=== PATIENT | female | born 1970 | race Caucasian/White ===

== ENCOUNTER 2024-02-12 10:52 | Emergency (ER) | payer MEDICAID ==
[~2024-02-12] VITALS: Ht 152.4 cm; Wt 79.8 kg
[2024-02-12 10:58] VITALS: TEMP 98.5
[2024-02-12] MEDS ORDERED: IBUPROFEN 600 MG TABLET ONE (11:11)
[2024-02-12] MEDS: IBUPROFEN 600 MG TABLET PO ONE (11:13)
[2024-02-12] MEDS ORDERED: oxyCODONE/APAP (5/325 MG) 1 UDTAB TABLET ONE (12:35)
[2024-02-12] MEDS: oxyCODONE/APAP (5/325 MG) 1 UDTAB TABLET PO ONE (12:38)
[2024-02-12] MEDS ORDERED: NAPR-1164 PO (12:55)
[2024-02-12 13:26] VITALS: BP 135/80; O2SAT 98
== END 2024-02-12 13:15 | disposition home or self-care (01) ==
LOC: ER 12:11
DX: S52.512A Displaced fracture of left radial styloid process, initial encounter for closed fracture (principal); W01.0XXA Fall on same level from slipping, tripping and stumbling without subsequent striking against object, initial encounter; Y93.89 Activity, other specified; Y92.89 Other specified places as the place of occurrence of the external cause; Y99.8 Other external cause status
CPT/HCPCS: 73030-TC; 73130-TC